=== PATIENT | male | born 1970 | race Caucasian/White ===

== ENCOUNTER 2018-08-25 16:04 | Emergency (ER) | payer OTHER ==
[~2018-08-25] VITALS: Ht 172.7 cm; Wt 79.4 kg
[2018-08-25 16:10] VITALS: BP 134/94
== END 2018-08-25 17:03 | disposition home or self-care (01) ==
LOC: ER 16:04
DX: Z71.1 Person with feared health complaint in whom no diagnosis is made (principal); Z86.59 Personal history of other mental and behavioral disorders; G43.909 Migraine, unspecified, not intractable, without status migrainosus